=== PATIENT | female | born 1960 | race Caucasian/White ===

== ENCOUNTER 2018-02-24 12:46 | Emergency (ER) | payer MEDICARE, OTHER ==
[2018-02-24 13:14] VITALS: BP 158/81
--- NOTE | 2018-02-24 13:27 | UC ---
Respiratory Complaint HPI - HPI Summary HPI Summary: Patient has hx of COPD is on continuous O2 and zithromax daily. Has had increase SOB, cough, and sore throat over the past 4 days. has had in crease the O2 to 3L - History of Current Complaint Chief Complaint: UCRespiratory Stated Complaint: SOB,CONGESTION,TIGHNESS IN CHEST Time Seen by Provider: 02/24/18 13:20 Hx Obtained From: Patient ?: No Onset/Duration: Sudden Onset, Lasting Days - 4 Timing: Constant Severity Initially: Mild Severity Currently: Moderate Pain Intensity: 0 Character: Cough: Productive Aggravating Factors: Exertion, Deep Breaths, Recumbent Position Alleviating Factors: Nothing Associated Signs And Symptoms: Positive: Dyspnea, Chills, Wheezing, URI - Allergies/Home Medications Allergies/Adverse Reactions: Allergies Allergy/AdvReac Type Severity Reaction Status Date / Time No Known Allergies Allergy Verified 02/24/18 13:03 Home Medications: Home Medications ALPRAZolam TAB* [Xanax TAB*] 0.125 mg PO TID PRN 02/24/18 [History Confirmed ] Albuterol HFA INHALER* [Ventolin HFA Inhaler*] 2 puff INH Q6H PRN 02/24/18 [ History Confirmed 02/24/18] Another Cholesterol Med 1 tab PO DAILY 02/24/18 [History] Aspirin 81 mg CHEW TAB* [Aspirin Low Dose TAB*] 81 mg PO DAILY 02/24/18 [ History Confirmed 02/24/18] Azithromycin TAB* [Zithromax TAB (Z-CHRIS) 250 mg #6 tabs] 250 mg PO DAILY [History Confirmed 02/24/18] Fluticasone-Salmeterol 250-50* [Advair Diskus 250-50*] 1 puff INH BID 02/24/18 [ History Confirmed 02/24/18] Lisinopril TAB* [Prinivil TAB*] 10 mg PO DAILY 02/24/18 [History Confirmed 02/24] Simvastatin [Zocor] 40 mg PO DAILY 02/24/18 [History Confirmed 02/24/18] Tiotropium CAP.INH* [Spiriva CAP.INH*] 1 cap.inh INH DAILY 02/24/18 [History Confirmed 02/24/18] PMH/Surg Hx/FS Hx/Imm Hx Previously Healthy: Yes - Surgical History Surgical History: Yes Surgery Procedure, Year, and Place: 1 Cardiac stent - Family History Known Family History: Positive: Respiratory Disease - Social History Alcohol Use: None Substance Use Type: None Smoking Status (MU): Former Smoker When Did the Patient Quit Smoking/Using Tobacco: 2014 Review of Systems Constitutional: Chills, Fatigue Skin: Negative Eyes: Negative ENT: Sore Throat Respiratory: Shortness Of Breath, Cough Cardiovascular: Negative Gastrointestinal: Negative Genitourinary: Negative Motor: Negative Neurovascular: Negative Musculoskeletal: Negative Neurological: Negative, Headache Is Patient Immunocompromised?: No All Other Systems Reviewed And Are Negative: Yes Physical Exam Triage Information Reviewed: Yes Appearance: Well-Nourished, Ill-Appearing, Pain Distress Vital Signs: Initial Vital Signs Temp 97.6 F 02/24/18 12:50 Pulse 103 02/24/18 12:50 Resp 20 02/24/18 12:50 BP 158/81 02/24/18 12:50 Pulse Ox 97 02/24/18 12:50 Vital Signs Reviewed: Yes Eye Exam: Normal ENT: Positive: Pharyngeal erythema, TMs normal Dental Exam: Normal Neck exam: Normal Neck: Positive: Supple, Nontender, No Lymphadenopathy Respiratory: Positive: Chest non-tender, Respiratory distress - moderate, Crackles, Rhonchi, Wheezing, Expiration, Inspiration Cardiovascular Exam: Normal Cardiovascular: Positive: No Murmur, Pulses Normal, Tachycardia Abdominal Exam: Normal Abdomen Description: Positive: Nontender, No Organomegaly, Soft Musculoskeletal Exam: Normal Musculoskeletal: Positive: Strength Intact, ROM Intact, No Edema Neurological Exam: Normal Neurological: Positive: Alert, Muscle Tone Normal Psychological Exam: Normal Skin Exam: Normal UC Diagnostic Evaluation - Laboratory O2 Sat by Pulse Oximetry: 97 Respiratory Course/Dx - Course Course Of Treatment: hx obtained, exam performed ,meds reviewed, chest xray obtained, treated for respiratory infection - Differential Dx/Diagnosis Differential Diagnosis/HQI/PQRI: Bronchitis, CHF, Exacerbation Of COPD, Influenza, Lower Resp Infection, Sinusitis Provider Diagnoses: bronchitis. COPD exacerbation. SOB Discharge - Sign-Out/Discharge Documenting (check all that apply): Patient Departure All imaging exams completed and their final reports reviewed: Yes - Discharge Plan Condition: Stable Disposition: HOME Prescriptions: DOXYcycline CAP(*) [DOXYcycline 100MG CAP(*)] 100 mg PO BID #14 cap predniSONE [Prednisone 20 MG TAB] 40 mg PO DAILY #10 tablet Patient Education Materials: COPD (Chronic Obstructive Pulmonary Disease) (ED) Referrals: Paulie Kwan MD [Primary Care Provider] - Additional Instructions: 1. take the medication as prescribed. 2. COntinue with your inhalers as needed 3. Rest 4. Follow up if not improving. - Billing Disposition and Condition Condition: STABLE Disposition: Home
--- NOTE | 2018-02-24 13:51 | RAD ---
INDICATION: Shortness of breath and congestion COMPARISON: Chest x-ray dated October 29, 2010 is in TECHNIQUE: PA and lateral views of the chest were obtained. FINDINGS: The heart and mediastinum are normal in size and contour. The lungs are grossly clear. There is no evidence of large pleural effusion. There is the appearance of bony callus formation at the posterior lateral right fifth rib that was not seen on the previous chest x-ray. Degenerative changes of the thoracic spine include loss of intervertebral disc height. There is no radiographic evidence of free air beneath the diaphragm IMPRESSION: 1. No radiographic evidence of acute cardiopulmonary disease. 2. Incidentally noted is what appears to be bony callus formation at the posterior lateral right fifth rib. Please correlate to physical examination and any recent trauma to the area.
[2018-02-24] MEDS ORDERED: Albuterol/Ipratropium NEB.SOL* Albuterol 2.5 MG/Ipratropium 0.5 MG 3 ML INH ONE (14:09)
== END 2018-02-24 14:53 | disposition home or self-care (01) ==
LOC: UCCORT 12:46
DX: J40 Bronchitis, not specified as acute or chronic (principal); J44.1 Chronic obstructive pulmonary disease with (acute) exacerbation; Z87.891 Personal history of nicotine dependence; Z99.81 Dependence on supplemental oxygen
CPT/HCPCS: 71046; 99212; A9270-GY; G0463